=== PATIENT | female | born 1945 | race Caucasian/White ===

== ENCOUNTER → 2017-11-05 | Outpatient (CLI) | payer MEDICARE, OTHER | END | disposition home or self-care (01) | LOC: Rad HDHVI 14:10 | PROVIDERS: ATTEND Internal Medicine Cardiovascular Disease | DX: M85.9 Disorder of bone density and structure, unspecified (principal) | CPT/HCPCS: 77078 ==

== ENCOUNTER → 2017-12-10 | Outpatient (CLI) | payer MEDICARE, OTHER ==
[2017-12-10 14:00] VITALS: BP 112/90
[2017-12-10 16:04] LABS: Cholesterol 246 mg/dL (< 200); HDL Cholesterol 89 mg/dL (40-59); LDL Cholesterol 138 mg/dL (< 100); Triglycerides 98 mg/dL (< 150)
== END | disposition home or self-care (01) ==
LOC: CHF HDHVI 11:02
PROVIDERS: ATTEND Internal Medicine
DX: E78.5 Hyperlipidemia, unspecified (principal); I10 Essential (primary) hypertension; I34.1 Nonrheumatic mitral (valve) prolapse
CPT/HCPCS: 36415; 80061; 96372; G0463

== ENCOUNTER → 2018-11-08 | Outpatient (CLI) | payer MEDICARE, OTHER ==
[~2018-11-08] MED LIST: IOHEXOL 350 MG/ML 100ML IJ ONE
[2018-11-08 13:15] VITALS: BP 128/64
[2018-11-08 13:51] VITALS: BP 118/54
--- NOTE | 2018-11-08 13:51 | NUR ---
IV insertion IV access obtained, via clean sterile technique by inserting 20 gauge catheter at after attempt(s). LABS DRAWN AND SENT. IV secured properly. No trauma to site. Patient tolerated procedure well. CTA CHEST AND ABDOMEN DONE AND TOLERATED WELL. IV DCD POST CT SCAN. Discharge Instructions See e-MAR for any mediations given with this visit. Patient education given on disease process. Patient verbalized understanding. Previous labs reviewed. Patient discharged in stable condition with after care instructions .
== END | disposition home or self-care (01) ==
LOC: Rad HDHVI 12:44
PROVIDERS: ATTEND Internal Medicine
DX: I70.0 Atherosclerosis of aorta (principal); R94.4 Abnormal results of kidney function studies
CPT/HCPCS: 36415; 71275; 82565; G0463; Q9967

== ENCOUNTER → 2019-06-06 | Outpatient (CLI) | payer MEDICARE, OTHER ==
[2019-06-06 16:20] LABS: Potassium 4.4 mmol/L (3.5-5.1)
[2019-06-06 16:27] LABS: Albumin 3.7 g/dL (3.4-5.0); BUN/Creatinine Ratio 9.5; Bilirubin, Total 0.3 mg/dL (0.2-1.0); Calcium 8.8 mg/dL (8.5-10.1)
== END | disposition home or self-care (01) ==
LOC: LAB 11:34
PROVIDERS: ATTEND Internal Medicine
DX: E78.5 Hyperlipidemia, unspecified (principal); I10 Essential (primary) hypertension
CPT/HCPCS: 36415; 80053; 80061

== ENCOUNTER → 2019-06-24 | Outpatient (CLI) | payer MEDICARE, OTHER | END | disposition home or self-care (01) | LOC: Rad HDHVI 10:59 | PROVIDERS: ATTEND Internal Medicine | DX: J44.9 Chronic obstructive pulmonary disease, unspecified (principal); I77.810 Thoracic aortic ectasia; I10 Essential (primary) hypertension; R07.89 Other chest pain | CPT/HCPCS: 93306 ==